=== PATIENT | female | born 1975 | race Hispanic/Latino ===

== ENCOUNTER 2022-07-30 14:23 | Observation (INO) | payer BC ==
[2022-07-30] MEDS ORDERED: Morphine 4 MG/ML VIAL ONE (15:11)
[2022-07-30] MEDS ORDERED: Ondansetron PF 4 MG/2 ML Vial ONE (15:11)
[2022-07-30 15:20] LABS: #Basophils 0.1 thou/uL (0.0-0.2); #Eosinphils 0.1 thou/uL (0.0-0.7); #Lymphocytes 1.4 thou/uL (1.20-3.40); #Monocytes 0.6 thou/uL (0.11-0.59); #Neutrophils 2.6 thou/uL (1.40-6.50); %Basophils 1.7 % (0.0-1.0); %Eosinophils 1.5 % (0.0-10.0); %Lymphocytes 29.8 % (21.0-51.0); %Monocytes 12.8 % (0.0-10.0); %Neutrophils 54.2 % (42.0-75.0); Hemoglobin 8.6 g/dL (12.0-16.0); Mean Corpuscular Hemoglobin 33.7 pg (27.0-31.0); Mean Platelet Volume 7.6 fL (7.4-10.4); Platelet Count 53 10x3/uL (130-400); Red Blood Cell (RBC) Count 2.54 mill/uL (4.20-5.40); White Blood Cell (WBC) Count 4.8 10x3/uL (4.8-10.8)
[2022-07-30 15:24] LABS: BHCG - Serum Negative (NEGATIVE); Pregs Control Background? CLEAR/WHITE (CLR/WHITE); Pregs Control Bar Appear? YES (CONTROL BAR)
[2022-07-30 15:31] LABS: ALT (SGPT) 26 U/L (8-55); AST (SGOT) 115 U/L (5-34); Albumin 1.9 g/dL (3.5-5.0); Alkaline Phosphatase 134 U/L (40-110); Anion Gap 11 mmol/L (10-20); BUN (Urea Nitrogen) 5 mg/dL (7.0-18.7); Bilirubin, Total 3.9 mg/dL (0.2-1.2); Calc. Creatinine Clearance 0 mL/min (70-130); Calcium 7.5 mg/dL (7.8-10.44); Carbon Dioxide 23 mmol/L (22-29); Chloride 106 mmol/L (98-107); Estimated GFR 109; Globulin 5.9 g/dL (2.4-3.5); Glucose 120 mg/dL (70-105); Lipase 95 U/L (8-78); Potassium 3.9 mmol/L (3.5-5.1); Protein, Total 7.8 g/dL (6.0-8.3); Sodium 136 mmol/L (136-145)
[2022-07-30 15:36] LABS: Anisocytosis SLIGHT = 6-15 cells (100X) (0-5/hpf); MDiff Complete? YES; Macrocytosis SLIGHT = 6-15 cells (100X) (0-5/hpf); Platelet Morphology Comment Appears Decreased; Polychromasia SLIGHT = 2-3 cells (100X) (0-2/hpf); Target Cells SLIGHT = 2-5 cells (100X) (0-1/hpf)
[2022-07-30] MEDS ORDERED: Senokot S 8.6-50 MG TAB PO PRN (17:32)
[2022-07-30] MEDS ORDERED: Furosemide 20 MG/2 ML VIAL SLOW IVP SCH (17:32)
[2022-07-30] MEDS ORDERED: Ondansetron PF 4 MG/2 ML Vial IVP PRN (18:45)
[2022-07-30] MEDS ORDERED: Ondansetron ODT 4 MG TAB SL PRN (18:45)
[2022-07-30 19:01] LABS: INR-International Normal Ratio 1.9; Prothrombin Time 22.7 sec (12.0-14.7)
[2022-07-30 19:02] LABS: PTT 47.9 sec (22.9-36.1)
[2022-07-30] MEDS: cefTRIAXone\\ROCEPHIN 1 GM in Sodium Chloride 0.9% 100 ML IVPB SCH (19:40)
[2022-07-31] MEDS ORDERED: Lorazepam 1 MG TAB PO SCH (06:00)
[2022-07-31 07:41] LABS: Anion Gap 12 mmol/L (10-20); BUN (Urea Nitrogen) 8 mg/dL (7.0-18.7); Calc. Creatinine Clearance 178 mL/min (70-130); Calcium 7.5 mg/dL (7.8-10.44); Carbon Dioxide 22 mmol/L (22-29); Chloride 104 mmol/L (98-107); Estimated GFR 110; Glucose 89 mg/dL (70-105); Potassium 3.8 mmol/L (3.5-5.1); Sodium 134 mmol/L (136-145)
[2022-07-31 07:52] LABS: #Basophils 0.1 thou/uL (0.0-0.2); #Lymphocytes 1.1 thou/uL (1.20-3.40); #Monocytes 0.5 thou/uL (0.11-0.59); #Neutrophils 2.7 thou/uL (1.40-6.50); %Basophils 2.2 % (0.0-1.0); %Lymphocytes 25.4 % (21.0-51.0); %Neutrophils 59.5 % (42.0-75.0); Hemoglobin 7.7 g/dL (12.0-16.0); Mean Corpuscular HGB CONC 30.2 g/dL (32.0-36.0); Mean Corpuscular Hemoglobin 32.3 pg (27.0-31.0); Platelet Count 45 10x3/uL (130-400); Red Blood Cell (RBC) Count 2.37 mill/uL (4.20-5.40); White Blood Cell (WBC) Count 4.5 10x3/uL (4.8-10.8)
[2022-07-31] MEDS ORDERED: Albumin 25% 25 GM/100 ML BOT IVPB SCH (09:00)
[2022-07-31] MEDS: traMADol HCl 50 MG TAB PO PRN (09:28)
[2022-07-31] MEDS ORDERED: Ondansetron ODT 4 MG TAB PO PRN ×2 (13:06→13:15)
[2022-07-31] MEDS ORDERED: Lorazepam 1 MG TAB PO PRN ×2 (13:06)
[2022-07-31] MEDS ORDERED: Lorazepam 2 MG/ML VIAL IM PRN ×2 (13:06→13:15)
[2022-07-31] MEDS ORDERED: Electrolyte Replacement Protocol 1 EACH FS PRN (13:15)
[2022-07-31] MEDS ORDERED: Thiamine HCl 200 MG/2 ML VIAL SLOW IVP SCH (13:15)
[2022-07-31] MEDS ORDERED: Electrolyte Replacement Protocol 1 EACH FS SCH (13:15)
[2022-07-31] MEDS ORDERED: Multivit, Therapeutic 1 TAB PO SCH (13:15)
[2022-07-31] MEDS ORDERED: Folic Acid 1 MG TAB PO SCH (13:15)
[2022-07-31] MEDS: Lorazepam 1 MG TAB PO SCH ×2 (13:59→19:21)
[2022-07-31] MEDS: Thiamine HCl 200 MG/2 ML VIAL SLOW IVP SCH (14:07)
[2022-07-31 14:22] LABS: #Basophils 0.1 thou/uL (0.0-0.2); #Monocytes 0.7 thou/uL (0.11-0.59); #Neutrophils 3.6 thou/uL (1.40-6.50); %Basophils 1.8 % (0.0-1.0); %Eosinophils 0.4 % (0.0-10.0); %Lymphocytes 18.6 % (21.0-51.0); %Monocytes 12.7 % (0.0-10.0); %Neutrophils 66.5 % (42.0-75.0); Mean Corpuscular HGB CONC 30.6 g/dL (32.0-36.0); Mean Corpuscular Hemoglobin 32.2 pg (27.0-31.0); Platelet Count 49 10x3/uL (130-400); Red Blood Cell (RBC) Count 2.47 mill/uL (4.20-5.40); White Blood Cell (WBC) Count 5.4 10x3/uL (4.8-10.8)
[2022-07-31 14:42] LABS: ALT (SGPT) 30 U/L (8-55); AST (SGOT) 156 U/L (5-34); Alkaline Phosphatase 152 U/L (40-110); Anion Gap 13 mmol/L (10-20); BUN (Urea Nitrogen) 8 mg/dL (7.0-18.7); Bilirubin, Direct 3.5 mg/dL (0.1-0.3); Bilirubin, Total 5.2 mg/dL (0.2-1.2); Calc. Creatinine Clearance 167 mL/min (70-130); Calcium 7.6 mg/dL (7.8-10.44); Carbon Dioxide 22 mmol/L (22-29); Chloride 104 mmol/L (98-107); Estimated GFR 109; Globulin 6.1 g/dL (2.4-3.5); Glucose 94 mg/dL (70-105); Magnesium 1.8 mg/dL (1.6-2.6); Phosphorus 2.5 mg/dL (2.3-4.7); Potassium 3.9 mmol/L (3.5-5.1); Protein, Total 8.1 g/dL (6.0-8.3); Sodium 135 mmol/L (136-145)
[2022-07-31] MEDS: cefTRIAXone\\ROCEPHIN 1 GM in Sodium Chloride 0.9% 100 ML IVPB SCH (17:34)
[2022-07-31 22:16] LABS: Syphilis Antibody Nonreactive (Nonreactive); Syphilis Antibody Index 0.15 S/CO (<1.00 Non-Reactive)
[2022-08-01] MEDS: Lorazepam 1 MG TAB PO SCH ×4 (00:58→18:55)
[2022-08-01] MEDS ORDERED: Magnesium 2 GM/50 ML(in water) 2 GM in Premix Bag 1 BAG IVPB SCH (01:30)
[2022-08-01 05:55] VITALS: BMI 41.5
[2022-08-01] MEDS ORDERED: Lorazepam 1 MG TAB PO SCH (06:00)
[2022-08-01 07:09] LABS: Anion Gap 11 mmol/L (10-20); BUN (Urea Nitrogen) 9 mg/dL (7.0-18.7); Calc. Creatinine Clearance 167 mL/min (70-130); Calcium 7.9 mg/dL (7.8-10.44); Carbon Dioxide 24 mmol/L (22-29); Chloride 100 mmol/L (98-107); Estimated GFR 108; Glucose 82 mg/dL (70-105); Iron 88 ug/dL (50-170); Iron Binding Capacity, Total 210 mcg/dL (265-497); Potassium 3.6 mmol/L (3.5-5.1); Sodium 131 mmol/L (136-145)
[2022-08-01 07:24] LABS: Ferritin 101.54 ng/mL (10-291); Hemoglobin A1c 3.7 % (4.0-6.0)
[2022-08-01] MEDS ORDERED: Sodium Bicarbonate 2.5 MEQ/5 ML VIAL ONE (07:45)
[2022-08-01] MEDS ORDERED: Lidocaine 2% PF 5 ML VIAL ONE (07:45)
[2022-08-01] MEDS ORDERED: Multivit, Therapeutic 1 TAB PO SCH (09:00)
[2022-08-01] MEDS ORDERED: Folic Acid 1 MG TAB PO SCH (09:00)
[2022-08-01] MEDS: Spironolactone 100 MG TAB PO SCH (10:21)
[2022-08-01] MEDS: Folic Acid 1 MG TAB PO SCH (10:21)
[2022-08-01] MEDS: Multivit, Therapeutic 1 TAB PO SCH (10:21)
[2022-08-01 11:16] LABS: BF Color Yellow; Body Fluid Source Ascites Body Fluid; Clarity Hazy (Clear); Tube # EDTA
[2022-08-01] MEDS ORDERED: Albumin 25% 25 GM/100 ML BOT IVPB SCH (11:45)
[2022-08-01 12:04] LABS: RBC Count-Automated (BF) 1608 /cu.mm; WBC/Nucleated-Auto (BF) 140 /cu.mm
[2022-08-01 12:30] LABS: BF Segmented Neutrophils 1 %; Cell Count Non Hematic 79 %; Lymphocytes 20 %
[2022-08-01] MEDS ORDERED: Lorazepam 1 MG TAB PO PRN ×2 (13:07→13:15)
[2022-08-01] MEDS: Thiamine HCl 200 MG/2 ML VIAL SLOW IVP SCH (13:46)
[2022-08-01] MEDS: traMADol HCl 50 MG TAB PO PRN (14:01)
[2022-08-01 15:51] LABS: HBCM Index 0.08 S/CO (0-0.79); HBSAg Index 0.38 S/CO (0-0.99); Hep A IgM AB Non-Reactive (NonReactive); Hep A IgM S/CO 0.31 S/CO (0-0.79); Hep B Surf Ag Non-Reactive S/CO (NonReactive); Hep C IgG Ab Non-Reactive (NonReactive); Hep C Index 0.27 S/CO (0-0.79); Hepatitis B Core IgM Abs Non-Reactive (NonReactive)
[2022-08-01 18:24] LABS: #Lymphocytes 0.8 thou/uL (1.20-3.40); #Monocytes 0.5 thou/uL (0.11-0.59); #Neutrophils 2.5 thou/uL (1.40-6.50); %Eosinophils 0.6 % (0.0-10.0); %Lymphocytes 20.4 % (21.0-51.0); %Monocytes 13.4 % (0.0-10.0); %Neutrophils 64.6 % (42.0-75.0); Hemoglobin 7.4 g/dL (12.0-16.0); Mean Corpuscular HGB CONC 30.5 g/dL (32.0-36.0); Mean Corpuscular Hemoglobin 32.5 pg (27.0-31.0); Mean Platelet Volume 8.6 fL (7.4-10.4); Platelet Count 40 10x3/uL (130-400); RBC Distribution Width 16.1 % (11.5-14.5); Red Blood Cell (RBC) Count 2.29 mill/uL (4.20-5.40); White Blood Cell (WBC) Count 3.9 10x3/uL (4.8-10.8)
[2022-08-01] MEDS: cefTRIAXone\\ROCEPHIN 1 GM in Sodium Chloride 0.9% 100 ML IVPB SCH (18:43)
[2022-08-02] MEDS: Lorazepam 1 MG TAB PO SCH ×2 (01:44→10:29)
[2022-08-02] MEDS ORDERED: Lorazepam 0.5 MG TAB PO SCH ×2 (06:00→13:15)
[2022-08-02 06:17] LABS: Anion Gap 8 mmol/L (10-20); BUN (Urea Nitrogen) 7 mg/dL (7.0-18.7); Calc. Creatinine Clearance 183 mL/min (70-130); Calcium 7.8 mg/dL (7.8-10.44); Carbon Dioxide 24 mmol/L (22-29); Chloride 101 mmol/L (98-107); Estimated GFR 110; Glucose 91 mg/dL (70-105); Potassium 3.3 mmol/L (3.5-5.1); Sodium 130 mmol/L (136-145)
[2022-08-02] MEDS ORDERED: Potassium Chloride 20 MEQ TAB PO SCH ×2 (08:30→10:30)
[2022-08-02] MEDS ORDERED: FLU VACC QS2022-23(6MOS UP)/PF 60 MCG/0.5 ML SYRINGE IM ONE (09:00)
[2022-08-02] MEDS: Multivit, Therapeutic 1 TAB PO SCH (10:24)
[2022-08-02] MEDS: Spironolactone 100 MG TAB PO SCH (10:25)
[2022-08-02] MEDS: Folic Acid 1 MG TAB PO SCH (10:25)
[2022-08-02 12:33] VITALS: BP 129/76; TEMP 97.9
[2022-08-02] MEDS ORDERED: Lorazepam 1 MG TAB PO PRN ×2 (13:07→13:15)
[2022-08-02] MEDS: Thiamine HCl 200 MG/2 ML VIAL SLOW IVP SCH (15:46)
[2022-08-03 02:12] LABS: Alpha-1-Antitrypsin 160 mg/dL (101-187)
[2022-08-03] MEDS ORDERED: Lorazepam 0.5 MG TAB PO PRN ×2 (06:00→13:07)
[2022-08-03] MEDS ORDERED: Thiamine 100 MG TAB PO SCH ×2 (09:00)
[2022-08-03 11:15] LABS: Smooth Muscle Total ABS 19 Units (0-19)
[2022-08-03 19:52] LABS: ANA Symphony (Qualitative) POSITIVE (Negative); ANA Symphony (Quantitative) 1.1 Ratio (< 0.7 Negative); CENP IgG Antibody 1.3 EliAU/mL (<7 Negative); RNP70 IgG Antibody 4.5 EliAU/mL (<7 Negative); SSA/Ro IgG Antibody 2.1 EliAU/mL (<7 Negative); SSB/La IgG Antibody 2.9 EliAU/mL (<7 Negative); Scleroderma-70 IgG Antibody 1.4 EliAU/mL (<7 Negative); Smith D IgG Antibody 4.2 EliAU/mL (<7 Negative); dsDNA IgG Antibody 2.4 IU/mL (<10 Negative)
== END 2022-08-02 14:35 | disposition home or self-care (01) ==
LOC: ERS 14:23 → SJJU 16:42 → INTOOBSV 16:42
PROVIDERS: ADMIT Internal Medicine; ATTEND Internal Medicine
PROC: 0W9G3ZX Drainage of Peritoneal Cavity, Percutaneous Approach, Diagnostic (ICD-10-PCS; principal; 2022-08-01)
DX: K70.31 Alcoholic cirrhosis of liver with ascites (principal); D61.818 Other pancytopenia; F10.139 Alcohol abuse with withdrawal, unspecified; E88.09 Other disorders of plasma-protein metabolism, not elsewhere classified; M06.9 Rheumatoid arthritis, unspecified; K80.20 Calculus of gallbladder without cholecystitis without obstruction; K76.6 Portal hypertension; Z79.899 Other long term (current) drug therapy
CPT/HCPCS: 36415; 36416; 49083; 80048; 80053; 80074; 82042; 82103; 82105; 82140; 82248; 82728; 83036; 83540; 83550; 83690; 83735; 84100; 84157; 84703; 85025; 85060; 85610; 85730; 86015; 86038; 86225; 86235; 86780; 87070; 87205; 89051; 96374; 96375; J0696; J1940; J2001; J2270; J2405; J3411; J3475; J3490; P9047; Q0162

== ENCOUNTER 2022-08-13 12:51 | Emergency (ER) | payer BC ==
[2022-08-13 14:01] LABS: #Basophils 0.1 thou/uL (0.0-0.2); #Eosinphils 0.1 thou/uL (0.0-0.7); #Lymphocytes 1.5 thou/uL (1.20-3.40); #Monocytes 0.6 thou/uL (0.11-0.59); #Neutrophils 3.2 thou/uL (1.40-6.50); %Basophils 2.1 % (0.0-1.0); %Eosinophils 2.5 % (0.0-10.0); %Lymphocytes 27.2 % (21.0-51.0); %Monocytes 10.5 % (0.0-10.0); %Neutrophils 57.7 % (42.0-75.0); Mean Corpuscular HGB CONC 31.1 g/dL (32.0-36.0); Mean Corpuscular Hemoglobin 31.7 pg (27.0-31.0); Mean Platelet Volume 6.7 fL (7.4-10.4); Platelet Count 158 10x3/uL (130-400); RBC Distribution Width 15.8 % (11.5-14.5); Red Blood Cell (RBC) Count 2.21 mill/uL (4.20-5.40); White Blood Cell (WBC) Count 5.6 10x3/uL (4.8-10.8)
== END 2022-08-13 17:35 | disposition home or self-care (01) ==
LOC: ERS 12:51
DX: D50.0 Iron deficiency anemia secondary to blood loss (chronic) (principal); K74.60 Unspecified cirrhosis of liver
CPT/HCPCS: 36415; 36430; 85025; 86850; 86900; 86901; 99284; P9016

== ENCOUNTER 2022-08-17 11:19 | Emergency (ER) | payer BC ==
[2022-08-17 12:41] LABS: #Basophils 0.1 thou/uL (0.0-0.2); #Eosinphils 0.1 thou/uL (0.0-0.7); #Lymphocytes 1.5 thou/uL (1.20-3.40); #Monocytes 0.5 thou/uL (0.11-0.59); #Neutrophils 3.6 thou/uL (1.40-6.50); %Basophils 1.8 % (0.0-1.0); %Eosinophils 1.5 % (0.0-10.0); %Lymphocytes 25.4 % (21.0-51.0); %Monocytes 8.3 % (0.0-10.0); %Neutrophils 62.9 % (42.0-75.0); Hemoglobin 8.5 g/dL (12.0-16.0); Mean Corpuscular HGB CONC 30.9 g/dL (32.0-36.0); Mean Corpuscular Hemoglobin 31.1 pg (27.0-31.0); Mean Platelet Volume 7.1 fL (7.4-10.4); Platelet Count 122 10x3/uL (130-400); RBC Distribution Width 16.9 % (11.5-14.5); Red Blood Cell (RBC) Count 2.74 mill/uL (4.20-5.40); White Blood Cell (WBC) Count 5.8 10x3/uL (4.8-10.8)
[2022-08-17 13:01] LABS: ALT (SGPT) 26 U/L (8-55); AST (SGOT) 126 U/L (5-34); Albumin 1.9 g/dL (3.5-5.0); Alkaline Phosphatase 150 U/L (40-110); Anion Gap 13 mmol/L (10-20); BUN (Urea Nitrogen) 6 mg/dL (7.0-18.7); Bilirubin, Total 4.1 mg/dL (0.2-1.2); Calc. Creatinine Clearance 0 mL/min (70-130); Carbon Dioxide 19 mmol/L (22-29); Chloride 107 mmol/L (98-107); Estimated GFR 109; Globulin 6.6 g/dL (2.4-3.5); Glucose 115 mg/dL (70-105); Potassium 4.5 mmol/L (3.5-5.1); Protein, Total 8.5 g/dL (6.0-8.3); Sodium 134 mmol/L (136-145)
[2022-08-17 16:11] LABS: Bacteria/HPF None Seen HPF (None Seen); Bilirubin 1+ (Negative); Blood, Urine Trace (Negative); Clarity Clear (Clear); Glucose, Urine (Dipstick) Normal (Negative); Ketone, Urine Negative (Negative); Leukocyte Negative Leu/uL (Negative); Nitrite Negative (Negative); Protein, Urine (Dipstick) 20 mg/dL (Neg-Trace); RBC/HPF 0-3 HPF (0-3); Specific Gravity, Urine 1.024 (1.002-1.036); Squamous Epithelial 0-3 HPF (0-3); WBC/HPF 0-3 HPF (0-3); pH, Urine 5.5 (5.0-9.0)
[2022-08-17] MEDS ORDERED: Ketorolac Tromethamine 30 MG/ML VIAL ONE (17:07)
== END 2022-08-17 17:23 | disposition home or self-care (01) ==
LOC: ERS 11:19
DX: M54.50 Low back pain, unspecified (principal); R55 Syncope and collapse; D64.9 Anemia, unspecified; K74.60 Unspecified cirrhosis of liver; I10 Essential (primary) hypertension; W19.XXXA Unspecified fall, initial encounter; Z79.899 Other long term (current) drug therapy
CPT/HCPCS: 36415; 70450; 71045; 72131; 80053; 81003; 81015; 82248; 84484; 85025; 93005; 96372; J1885

== ENCOUNTER 2022-08-20 07:58 | Inpatient (IN) | payer BC ==
[2022-08-20 09:00] LABS: #Basophils 0.1 thou/uL (0.0-0.2); #Eosinphils 0.1 thou/uL (0.0-0.7); #Lymphocytes 1.3 thou/uL (1.20-3.40); #Monocytes 0.7 thou/uL (0.11-0.59); #Neutrophils 6.3 thou/uL (1.40-6.50); %Basophils 0.8 % (0.0-1.0); %Eosinophils 1.5 % (0.0-10.0); %Lymphocytes 14.7 % (21.0-51.0); %Monocytes 7.9 % (0.0-10.0); Hemoglobin 7.4 g/dL (12.0-16.0); Mean Corpuscular Hemoglobin 32.7 pg (27.0-31.0); Mean Platelet Volume 8.2 fL (7.4-10.4); Platelet Count 83 10x3/uL (130-400); RBC Distribution Width 18.4 % (11.5-14.5); Red Blood Cell (RBC) Count 2.26 mill/uL (4.20-5.40); White Blood Cell (WBC) Count 8.5 10x3/uL (4.8-10.8)
[2022-08-20 09:09] LABS: Prothrombin Time 32.8 sec (12.0-14.7)
[2022-08-20 09:10] LABS: PTT 45.6 sec (22.9-36.1)
[2022-08-20 09:18] LABS: ALT (SGPT) 16 U/L (8-55); AST (SGOT) 56 U/L (5-34); Albumin 1.6 g/dL (3.5-5.0); Alkaline Phosphatase 78 U/L (40-110); Anion Gap 14 mmol/L (10-20); BUN (Urea Nitrogen) 15 mg/dL (7.0-18.7); Bilirubin, Total 4.9 mg/dL (0.2-1.2); Calc. Creatinine Clearance 0 mL/min (70-130); Calcium 7.8 mg/dL (7.8-10.44); Carbon Dioxide 20 mmol/L (22-29); Chloride 107 mmol/L (98-107); Estimated GFR 36; Globulin 3.8 g/dL (2.4-3.5); Glucose 123 mg/dL (70-105); Lipase 87 U/L (8-78); Magnesium 1.8 mg/dL (1.6-2.6); Potassium 4.5 mmol/L (3.5-5.1); Protein, Total 5.4 g/dL (6.0-8.3); Sodium 136 mmol/L (136-145)
[2022-08-20 09:24] LABS: Hypochromia SLIGHT = 6-15 cells (100X) (0-5/hpf); MDiff Complete? YES; Macrocytosis SLIGHT = 6-15 cells (100X) (0-5/hpf); Platelet Morphology Comment Appears Decreased; Polychromasia MODERATE = 3-4 cells (100X) (0-2/hpf); Target Cells SLIGHT = 2-5 cells (100X) (0-1/hpf); Tear Drops SLIGHT = 2-5 cells (100X) (0-1/hpf)
[2022-08-20] MEDS ORDERED: Lidocaine 1% w/Epinephrine 1:100K 20 ML VIAL IJ SCH (10:00)
[2022-08-20] MEDS ORDERED: Albumin 25% 25 GM/100 ML BOT IVPB SCH (10:30)
[2022-08-20] MEDS ORDERED: Metoclopramide HCl 10 MG/2 ML VIAL IVP PRN (11:56)
[2022-08-20] MEDS ORDERED: Furosemide 40 MG/4 ML VIAL SLOW IVP SCH (12:00)
[2022-08-20] MEDS ORDERED: Sodium Chloride 0.9% 1,000 ML IV SCH (13:15)
[2022-08-20] MEDS: cefTRIAXone\\ROCEPHIN 2 GM in Sodium Chloride 0.9% 100 ML IVPB SCH (13:51)
[2022-08-20] MEDS: Midodrine HCl 5 MG TAB PO SCH ×2 (14:28→21:49)
[2022-08-20] MEDS: Albumin 25% 25 GM/100 ML BOT IVPB SCH ×2 (17:49→23:17)
[2022-08-20 17:53] LABS: Bacteria/HPF 1+ HPF (None Seen); Bilirubin 2+ (Negative); Blood, Urine Negative (Negative); CAUTI Indications for Culture Alt mental st,lethar; Clarity Cloudy (Clear); Glucose, Urine (Dipstick) Normal (Negative); Ketone, Urine Negative (Negative); Leukocyte 75 Leu/uL (Negative); Nitrite Negative (Negative); Protein, Urine (Dipstick) 30 mg/dL (Neg-Trace); Specific Gravity, Urine 1.028 (1.002-1.036)
[2022-08-20 17:54] LABS: Urine Culture Reflex Yes Yes
[2022-08-20 18:09] LABS: Creatinine, Urine 277.27 mg/dL (47-110)
[2022-08-20 20:26] LABS: Amphetamine Not Detected (NotDetected); Barbiturates Screen Not Detected (NotDetected); Benzodiazepine Screen Not Detected (NotDetected); Cocaine Metabolite Screen Not Detected (NotDetected); Methadone Not Detected (NotDetected); Methamphetamine Not Detected (NotDetected); Opiate Screen Not Detected (NotDetected); Oxycodone Screen Not Detected (NotDetected); Phencyclidine (PCP) Not Detected (NotDetected); THC/Cannabinoid Screen Not Detected (NotDetected); Tricyclic Screen Not Detected (NotDetected)
[2022-08-20 20:32] LABS: Acetaminophen Less than 10.0 mcg/mL (10.0-30.0); Alcohol Less than 10 mg/dL (Less than 10); Salicylate Less than 8.0 mg/dL (15.0-30.0)
[2022-08-20] MEDS: Sodium Bicarbonate Tab 325 MG TAB PO SCH (21:49)
[2022-08-21] MEDS: Albumin 25% 25 GM/100 ML BOT IVPB SCH ×3 (04:44→17:30)
[2022-08-21 07:15] LABS: ALT (SGPT) 12 U/L (8-55); AST (SGOT) 44 U/L (5-34); Albumin 2.5 g/dL (3.5-5.0); Alkaline Phosphatase 57 U/L (40-110); Anion Gap 11 mmol/L (10-20); BUN (Urea Nitrogen) 19 mg/dL (7.0-18.7); Bilirubin, Total 3.2 mg/dL (0.2-1.2); Calc. Creatinine Clearance 68 mL/min (70-130); Calcium 8.1 mg/dL (7.8-10.44); Carbon Dioxide 22 mmol/L (22-29); Chloride 109 mmol/L (98-107); Estimated GFR 37; Globulin 2.8 g/dL (2.4-3.5); Glucose 111 mg/dL (70-105); INR-International Normal Ratio 3.5; Protein, Total 5.3 g/dL (6.0-8.3); Prothrombin Time 37.1 sec (12.0-14.7); Sodium 138 mmol/L (136-145)
[2022-08-21] MEDS: Thiamine 100 MG TAB PO SCH (08:18)
[2022-08-21] MEDS: Cyanocobalamin (Vitamin B-12) 1,000 MCG TAB PO SCH (08:18)
[2022-08-21] MEDS: Folic Acid 1 MG TAB PO SCH (08:18)
[2022-08-21] MEDS: Midodrine HCl 5 MG TAB PO SCH ×3 (08:18→20:30)
[2022-08-21] MEDS: Sodium Bicarbonate Tab 325 MG TAB PO SCH ×2 (08:18→20:29)
[2022-08-21] MEDS ORDERED: Furosemide 40 MG/4 ML VIAL SLOW IVP SCH (09:00)
[2022-08-21] MEDS ORDERED: Epoetin (ESRD) 10,000 UNITS/ML VIAL SC SCH (09:00)
[2022-08-21 09:37] LABS: #Eosinphils 0.1 thou/uL (0.0-0.7); #Lymphocytes 1.4 thou/uL (1.20-3.40); #Monocytes 0.6 thou/uL (0.11-0.59); #Neutrophils 4.2 thou/uL (1.40-6.50); %Basophils 0.6 % (0.0-1.0); %Eosinophils 1.1 % (0.0-10.0); %Lymphocytes 22.4 % (21.0-51.0); %Monocytes 9.2 % (0.0-10.0); %Neutrophils 66.7 % (42.0-75.0); Hemoglobin 3.4 g/dL (12.0-16.0); Mean Corpuscular HGB CONC 31.2 g/dL (32.0-36.0); Mean Corpuscular Hemoglobin 33.9 pg (27.0-31.0); Mean Platelet Volume 7.9 fL (7.4-10.4); Platelet Count 76 10x3/uL (130-400); RBC Distribution Width 20.1 % (11.5-14.5); Red Blood Cell (RBC) Count 1.02 mill/uL (4.20-5.40); White Blood Cell (WBC) Count 6.3 10x3/uL (4.8-10.8)
[2022-08-21 10:06] LABS: Anisocytosis MODERATE=16-30 cells (100X) (0-5/hpf); Hypochromia SLIGHT = 6-15 cells (100X) (0-5/hpf); MDiff Complete? YES; Macrocytosis MODERATE=16-30 cells (100X) (0-5/hpf); Platelet Morphology Comment Appears Decreased; Polychromasia MODERATE = 3-4 cells (100X) (0-2/hpf); Target Cells MODERATE= 6-15 cells (100X) (0-1/hpf); Tear Drops SLIGHT = 2-5 cells (100X) (0-1/hpf)
[2022-08-21] MEDS ORDERED: Albumin 25% 25 GM/100 ML BOT IVPB SCH (12:00)
[2022-08-21] MEDS: cefTRIAXone\\ROCEPHIN 2 GM in Sodium Chloride 0.9% 100 ML IVPB SCH (12:58)
[2022-08-21] MEDS ORDERED: Octreotide Acetate 1,250 MCG in Sodium Chloride 0.9% 250 ML 250 ML IVPB SCH (14:45)
[2022-08-21] MEDS ORDERED: Phytonadione 10 MG in Sodium Chloride 0.9% 50 ML IVPB SCH (14:45)
[2022-08-21 18:43] LABS: Hemoglobin 6.8 g/dL (12.0-16.0); Mean Corpuscular HGB CONC 33.1 g/dL (32.0-36.0); Mean Corpuscular Hemoglobin 31.7 pg (27.0-31.0); Mean Corpuscular Volume 95.7 fl (78.0-98.0); Mean Platelet Volume 8.4 fL (7.4-10.4); Platelet Count 75 10x3/uL (130-400); RBC Distribution Width 20.5 % (11.5-14.5); Red Blood Cell (RBC) Count 2.14 mill/uL (4.20-5.40); White Blood Cell (WBC) Count 7.8 10x3/uL (4.8-10.8)
[2022-08-22] MEDS: Albumin 25% 25 GM/100 ML BOT IVPB SCH ×4 (01:47→14:37)
[2022-08-22] MEDS ORDERED: Melatonin 3 MG TAB PO PRN (01:47)
[2022-08-22 06:55] LABS: INR-International Normal Ratio 2.5; Prothrombin Time 28.3 sec (12.0-14.7)
[2022-08-22 06:56] LABS: #Basophils 0.1 thou/uL (0.0-0.2); #Eosinphils 0.2 thou/uL (0.0-0.7); #Lymphocytes 1.1 thou/uL (1.20-3.40); #Monocytes 0.8 thou/uL (0.11-0.59); #Neutrophils 6.2 thou/uL (1.40-6.50); %Basophils 0.9 % (0.0-1.0); %Eosinophils 2.4 % (0.0-10.0); %Lymphocytes 12.7 % (21.0-51.0); %Monocytes 9.7 % (0.0-10.0); %Neutrophils 74.3 % (42.0-75.0); Hemoglobin 7.2 g/dL (12.0-16.0); Mean Corpuscular HGB CONC 31.6 g/dL (32.0-36.0); Mean Corpuscular Hemoglobin 30.7 pg (27.0-31.0); Mean Corpuscular Volume 97.2 fl (78.0-98.0); Mean Platelet Volume 7.8 fL (7.4-10.4); Platelet Count 105 10x3/uL (130-400); RBC Distribution Width 20.2 % (11.5-14.5); Red Blood Cell (RBC) Count 2.35 mill/uL (4.20-5.40); White Blood Cell (WBC) Count 8.4 10x3/uL (4.8-10.8)
[2022-08-22 07:06] LABS: Anion Gap 10 mmol/L (10-20); BUN (Urea Nitrogen) 15 mg/dL (7.0-18.7); Calc. Creatinine Clearance 130 mL/min (70-130); Calcium 8.6 mg/dL (7.8-10.44); Carbon Dioxide 22 mmol/L (22-29); Chloride 107 mmol/L (98-107); Estimated GFR 78; Glucose 114 mg/dL (70-105); Potassium 3.7 mmol/L (3.5-5.1); Sodium 135 mmol/L (136-145)
[2022-08-22 07:12] LABS: Iron 37 ug/dL (50-170); Iron Binding Capacity, Total 123 mcg/dL (265-497)
[2022-08-22] MEDS: Thiamine 100 MG TAB PO SCH (08:13)
[2022-08-22] MEDS: Folic Acid 1 MG TAB PO SCH (08:13)
[2022-08-22] MEDS: Midodrine HCl 5 MG TAB PO SCH ×3 (08:14→21:30)
[2022-08-22] MEDS: Cyanocobalamin (Vitamin B-12) 1,000 MCG TAB PO SCH (08:14)
[2022-08-22] MEDS: Sodium Bicarbonate Tab 325 MG TAB PO SCH ×2 (08:14→21:30)
[2022-08-22] MEDS: Acetaminophen 325 MG TAB PO PRN (12:28)
[2022-08-22] MEDS: cefTRIAXone\\ROCEPHIN 2 GM in Sodium Chloride 0.9% 100 ML IVPB SCH (12:28)
[2022-08-22] MEDS ORDERED: Torsemide 10 MG TAB PO SCH (13:00)
[2022-08-22] MEDS ORDERED: Spironolactone 25 MG TAB PO SCH (13:00)
[2022-08-22] MEDS: Octreotide Acetate 1,250 MCG in Sodium Chloride 0.9% 250 ML 250 ML IVPB SCH (16:53)
[2022-08-23 07:36] LABS: INR-International Normal Ratio 2.6; Prothrombin Time 28.8 sec (12.0-14.7)
[2022-08-23 07:37] LABS: #Basophils 0.1 thou/uL (0.0-0.2); #Eosinphils 0.2 thou/uL (0.0-0.7); #Lymphocytes 1.3 thou/uL (1.20-3.40); #Neutrophils 5.4 thou/uL (1.40-6.50); %Eosinophils 2.4 % (0.0-10.0); %Lymphocytes 16.6 % (21.0-51.0); %Monocytes 12.3 % (0.0-10.0); %Neutrophils 67.7 % (42.0-75.0); Hemoglobin 7.3 g/dL (12.0-16.0); Mean Corpuscular HGB CONC 31.9 g/dL (32.0-36.0); Mean Corpuscular Hemoglobin 31.4 pg (27.0-31.0); Mean Corpuscular Volume 98.5 fl (78.0-98.0); Mean Platelet Volume 7.6 fL (7.4-10.4); Platelet Count 101 10x3/uL (130-400); RBC Distribution Width 19.8 % (11.5-14.5); Red Blood Cell (RBC) Count 2.31 mill/uL (4.20-5.40)
[2022-08-23 07:50] LABS: ALT (SGPT) 11 U/L (8-55); AST (SGOT) 37 U/L (5-34); Alkaline Phosphatase 62 U/L (40-110); Anion Gap 11 mmol/L (10-20); BUN (Urea Nitrogen) 12 mg/dL (7.0-18.7); Bilirubin, Total 6.8 mg/dL (0.2-1.2); Calc. Creatinine Clearance 156 mL/min (70-130); Calcium 8.4 mg/dL (7.8-10.44); Carbon Dioxide 23 mmol/L (22-29); Chloride 106 mmol/L (98-107); Estimated GFR 98; Globulin 2.9 g/dL (2.4-3.5); Glucose 106 mg/dL (70-105); Potassium 3.4 mmol/L (3.5-5.1); Protein, Total 5.9 g/dL (6.0-8.3); Sodium 137 mmol/L (136-145)
[2022-08-23] MEDS: Midodrine HCl 5 MG TAB PO SCH ×3 (08:45→22:22)
[2022-08-23] MEDS: Folic Acid 1 MG TAB PO SCH (08:45)
[2022-08-23] MEDS: Cyanocobalamin (Vitamin B-12) 1,000 MCG TAB PO SCH (08:45)
[2022-08-23] MEDS: Thiamine 100 MG TAB PO SCH (08:45)
[2022-08-23] MEDS: Sodium Bicarbonate Tab 325 MG TAB PO SCH ×2 (08:45→22:23)
[2022-08-23] MEDS: Acetaminophen 325 MG TAB PO PRN (10:41)
[2022-08-23] MEDS ORDERED: Torsemide 10 MG TAB PO SCH (12:15)
[2022-08-23] MEDS ORDERED: Spironolactone 100 MG TAB PO SCH (12:15)
[2022-08-23] MEDS: cefTRIAXone\\ROCEPHIN 2 GM in Sodium Chloride 0.9% 100 ML IVPB SCH (13:07)
[2022-08-23] MEDS: Albumin 25% 25 GM/100 ML BOT IVPB SCH (17:33)
[2022-08-23] MEDS: Octreotide Acetate 1,250 MCG in Sodium Chloride 0.9% 250 ML 250 ML IVPB SCH (18:31)
[2022-08-23] MEDS: Spironolactone 100 MG TAB PO SCH (22:23)
[2022-08-24] MEDS: Albumin 25% 25 GM/100 ML BOT IVPB SCH ×4 (00:05→17:48)
[2022-08-24 06:38] LABS: Hemoglobin 7.3 g/dL (12.0-16.0)
[2022-08-24 07:03] LABS: ALT (SGPT) 9 U/L (8-55); AST (SGOT) 34 U/L (5-34); Albumin 2.8 g/dL (3.5-5.0); Alkaline Phosphatase 57 U/L (40-110); Anion Gap 10 mmol/L (10-20); BUN (Urea Nitrogen) 9 mg/dL (7.0-18.7); Bilirubin, Total 5.1 mg/dL (0.2-1.2); Calc. Creatinine Clearance 168 mL/min (70-130); Calcium 8.2 mg/dL (7.8-10.44); Carbon Dioxide 26 mmol/L (22-29); Chloride 107 mmol/L (98-107); Estimated GFR 107; Globulin 2.7 g/dL (2.4-3.5); Glucose 115 mg/dL (70-105); Potassium 3.1 mmol/L (3.5-5.1); Protein, Total 5.5 g/dL (6.0-8.3); Sodium 140 mmol/L (136-145)
[2022-08-24] MEDS ORDERED: Electrolyte Replacement Protocol 1 EACH FS SCH (07:45)
[2022-08-24] MEDS ORDERED: Potassium Chloride 20 MEQ TAB PO SCH (08:00)
[2022-08-24 08:23] LABS: Magnesium 1.3 mg/dL (1.6-2.6)
[2022-08-24] MEDS: Sodium Bicarbonate Tab 325 MG TAB PO SCH (08:41)
[2022-08-24] MEDS: Midodrine HCl 5 MG TAB PO SCH ×3 (08:41→21:52)
[2022-08-24] MEDS: Spironolactone 100 MG TAB PO SCH ×2 (08:41→21:52)
[2022-08-24] MEDS: Folic Acid 1 MG TAB PO SCH (08:41)
[2022-08-24] MEDS: Cyanocobalamin (Vitamin B-12) 1,000 MCG TAB PO SCH (08:41)
[2022-08-24] MEDS: Torsemide 10 MG TAB PO SCH (08:42)
[2022-08-24] MEDS: Thiamine 100 MG TAB PO SCH (08:42)
[2022-08-24] MEDS ORDERED: Magnesium Sulfate In Water 4 GM in Premix Bag 1 BAG IVPB SCH (09:00)
[2022-08-24 11:38] VITALS: BMI 43.0
[2022-08-24] MEDS: cefTRIAXone\\ROCEPHIN 2 GM in Sodium Chloride 0.9% 100 ML IVPB SCH (12:15)
[2022-08-24] MEDS ORDERED: Furosemide 40 MG/4 ML VIAL SLOW IVP SCH (12:15)
[2022-08-24] MEDS: Rifaximin 550 MG TAB PO SCH (21:52)
[2022-08-25] MEDS: Albumin 25% 25 GM/100 ML BOT IVPB SCH ×5 (00:15→23:57)
[2022-08-25 08:03] LABS: ALT (SGPT) 11 U/L (8-55); AST (SGOT) 36 U/L (5-34); Albumin 3.2 g/dL (3.5-5.0); Alkaline Phosphatase 55 U/L (40-110); Anion Gap 10 mmol/L (10-20); BUN (Urea Nitrogen) 11 mg/dL (7.0-18.7); Bilirubin, Total 4.6 mg/dL (0.2-1.2); Calc. Creatinine Clearance 172 mL/min (70-130); Calcium 8.2 mg/dL (7.8-10.44); Carbon Dioxide 28 mmol/L (22-29); Chloride 103 mmol/L (98-107); Estimated GFR 108; Globulin 2.5 g/dL (2.4-3.5); Glucose 120 mg/dL (70-105); Potassium 3.1 mmol/L (3.5-5.1); Protein, Total 5.7 g/dL (6.0-8.3); Sodium 138 mmol/L (136-145)
[2022-08-25] MEDS ORDERED: Potassium Chloride 20 MEQ TAB PO SCH (08:30)
[2022-08-25] MEDS: Thiamine 100 MG TAB PO SCH (09:12)
[2022-08-25] MEDS: Midodrine HCl 5 MG TAB PO SCH ×3 (09:12→20:41)
[2022-08-25] MEDS: Torsemide 10 MG TAB PO SCH (09:12)
[2022-08-25] MEDS: Folic Acid 1 MG TAB PO SCH (09:12)
[2022-08-25] MEDS: Rifaximin 550 MG TAB PO SCH ×2 (09:12→20:41)
[2022-08-25] MEDS: Cyanocobalamin (Vitamin B-12) 1,000 MCG TAB PO SCH (09:13)
[2022-08-25] MEDS: Spironolactone 100 MG TAB PO SCH ×2 (09:13→20:41)
[2022-08-25] MEDS: cefTRIAXone\\ROCEPHIN 2 GM in Sodium Chloride 0.9% 100 ML IVPB SCH (14:00)
[2022-08-25] MEDS ORDERED: Torsemide 10 MG TAB PO SCH (16:00)
[2022-08-25] MEDS: Potassium Chloride 20 MEQ TAB PO SCH (16:45)
[2022-08-25] MEDS ORDERED: Phytonadione 5 MG TAB PO SCH (16:50)
[2022-08-26] MEDS: Albumin 25% 25 GM/100 ML BOT IVPB SCH ×3 (05:58→20:18)
[2022-08-26 07:17] LABS: INR-International Normal Ratio 2.8; Prothrombin Time 30.7 sec (12.0-14.7)
[2022-08-26 07:18] LABS: PTT 52.8 sec (22.9-36.1)
[2022-08-26 07:19] LABS: Hemoglobin 6.8 g/dL (12.0-16.0); Mean Corpuscular HGB CONC 30.5 g/dL (32.0-36.0); Mean Platelet Volume 7.2 fL (7.4-10.4); Platelet Count 102 10x3/uL (130-400); RBC Distribution Width 18.9 % (11.5-14.5); White Blood Cell (WBC) Count 4.3 10x3/uL (4.8-10.8)
[2022-08-26 07:26] LABS: ALT (SGPT) 10 U/L (8-55); AST (SGOT) 40 U/L (5-34); Albumin 3.4 g/dL (3.5-5.0); Alkaline Phosphatase 49 U/L (40-110); Anion Gap 11 mmol/L (10-20); BUN (Urea Nitrogen) 10 mg/dL (7.0-18.7); Bilirubin, Total 5.2 mg/dL (0.2-1.2); Calc. Creatinine Clearance 173 mL/min (70-130); Calcium 8.7 mg/dL (7.8-10.44); Carbon Dioxide 28 mmol/L (22-29); Chloride 102 mmol/L (98-107); Estimated GFR 109; Globulin 2.4 g/dL (2.4-3.5); Glucose 98 mg/dL (70-105); Magnesium 1.3 mg/dL (1.6-2.6); Potassium 3.4 mmol/L (3.5-5.1); Protein, Total 5.8 g/dL (6.0-8.3); Sodium 138 mmol/L (136-145)
[2022-08-26] MEDS ORDERED: PHOS-NAK 1 PKT PACK PO SCH (08:00)
[2022-08-26] MEDS ORDERED: Magnesium Sulfate In Water 4 GM in Premix Bag 1 BAG IVPB SCH (08:00)
[2022-08-26] MEDS ORDERED: Magnesium Sulfate 4 GM in Sodium Chloride 0.9% 250 ML 250 ML IVPB SCH (08:30)
[2022-08-26] MEDS ORDERED: Potassium Phosphate 30 MMOL in Sodium Chloride 0.9% 250 ML 250 ML IVPB SCH (09:30)
[2022-08-26] MEDS: Potassium Chloride 20 MEQ TAB PO SCH ×2 (09:38→18:28)
[2022-08-26] MEDS: Torsemide 20 MG TAB PO SCH (09:39)
[2022-08-26] MEDS: Spironolactone 100 MG TAB PO SCH ×2 (09:39→20:19)
[2022-08-26] MEDS: Rifaximin 550 MG TAB PO SCH ×2 (09:39→20:19)
[2022-08-26] MEDS: Thiamine 100 MG TAB PO SCH (09:39)
[2022-08-26] MEDS: Cyanocobalamin (Vitamin B-12) 1,000 MCG TAB PO SCH (09:39)
[2022-08-26] MEDS: Folic Acid 1 MG TAB PO SCH (09:39)
[2022-08-26] MEDS: Midodrine HCl 5 MG TAB PO SCH ×3 (09:39→20:19)
[2022-08-26] MEDS: Acetaminophen 325 MG TAB PO PRN (10:36)
[2022-08-26] MEDS: Magnesium Sulfate In Water 4 GM in Premix Bag 1 BAG IVPB SCH ×2 (10:36→18:12)
[2022-08-26] MEDS ORDERED: Potassium Chloride 20 MEQ TAB PO SCH (12:00)
[2022-08-26] MEDS: cefTRIAXone\\ROCEPHIN 2 GM in Sodium Chloride 0.9% 100 ML IVPB SCH (15:18)
[2022-08-27 00:06] LABS: Hemoglobin 7.6 g/dL (12.0-16.0)
[2022-08-27 06:33] LABS: ALT (SGPT) 12 U/L (8-55); AST (SGOT) 42 U/L (5-34); Albumin 3.6 g/dL (3.5-5.0); Alkaline Phosphatase 54 U/L (40-110); Anion Gap 13 mmol/L (10-20); BUN (Urea Nitrogen) 9 mg/dL (7.0-18.7); Bilirubin, Total 5.5 mg/dL (0.2-1.2); Calc. Creatinine Clearance 181 mL/min (70-130); Calcium 8.9 mg/dL (7.8-10.44); Carbon Dioxide 27 mmol/L (22-29); Chloride 103 mmol/L (98-107); Estimated GFR 111; Globulin 2.5 g/dL (2.4-3.5); Glucose 96 mg/dL (70-105); Protein, Total 6.1 g/dL (6.0-8.3); Sodium 139 mmol/L (136-145)
[2022-08-27 06:34] LABS: Phosphorus 2.9 mg/dL (2.3-4.7)
[2022-08-27] MEDS ORDERED: Magnesium 2 GM/50 ML(in water) 2 GM in Premix Bag 1 BAG IVPB SCH (08:00)
[2022-08-27 08:16] LABS: Eosinophils 4 % (0-10); Hemoglobin 7.9 g/dL (12.0-16.0); Hypochromia SLIGHT = 6-15 cells (100X) (0-5/hpf); Lymphocytes 30 % (21-51); MDiff Complete? YES; Mean Corpuscular HGB CONC 31.7 g/dL (32.0-36.0); Mean Corpuscular Hemoglobin 31.7 pg (27.0-31.0); Mean Platelet Volume 7.9 fL (7.4-10.4); Monocytes 16 % (0-10); Neutrophil 50 % (42-75); Platelet Count 100 10x3/uL (130-400); Platelet Morphology Comment Appears Adequate; Polychromasia SLIGHT = 2-3 cells (100X) (0-2/hpf); RBC Distribution Width 18.6 % (11.5-14.5); Target Cells SLIGHT = 2-5 cells (100X) (0-1/hpf); Vacuoles SLIGHT; White Blood Cell (WBC) Count 4.8 10x3/uL (4.8-10.8)
[2022-08-27] MEDS: Rifaximin 550 MG TAB PO SCH (08:46)
[2022-08-27] MEDS: Thiamine 100 MG TAB PO SCH (08:46)
[2022-08-27] MEDS: Cyanocobalamin (Vitamin B-12) 1,000 MCG TAB PO SCH (08:46)
[2022-08-27] MEDS: Midodrine HCl 5 MG TAB PO SCH ×2 (08:46→17:23)
[2022-08-27] MEDS: Folic Acid 1 MG TAB PO SCH (08:46)
[2022-08-27] MEDS: Potassium Chloride 20 MEQ TAB PO SCH ×2 (08:46→17:17)
[2022-08-27 08:57] VITALS: TEMP 98.8
[2022-08-27] MEDS: Albumin 25% 25 GM/100 ML BOT IVPB SCH (10:03)
[2022-08-27] MEDS: Torsemide 20 MG TAB PO SCH (11:14)
[2022-08-27] MEDS: Spironolactone 100 MG TAB PO SCH (11:15)
[2022-08-27] MEDS: cefTRIAXone\\ROCEPHIN 2 GM in Sodium Chloride 0.9% 100 ML IVPB SCH (14:48)
[2022-08-27 17:36] VITALS: BP 136/76
[2022-08-30 16:56] LABS: EliA Vaculitis New Method **** NEW METHOD ****
== END 2022-08-27 18:45 | disposition home or self-care (01) | DRG 920 ==
LOC: ERS 07:58 → T4-A 11:33 → OBSVTOIN 08-21 15:59
PROVIDERS: ADMIT Family Medicine; ATTEND Internal Medicine
PROC: 30233R1 Transfusion of Nonautologous Platelets into Peripheral Vein, Percutaneous Approach (ICD-10-PCS; principal; 2022-08-21)
PROC: 30233N1 Transfusion of Nonautologous Red Blood Cells into Peripheral Vein, Percutaneous Approach (ICD-10-PCS; 2022-08-21)
DX: T85.631A Leakage of intraperitoneal dialysis catheter, initial encounter (principal); D61.818 Other pancytopenia; D62 Acute posthemorrhagic anemia; D68.9 Coagulation defect, unspecified; N17.9 Acute kidney failure, unspecified; G93.40 Encephalopathy, unspecified; T85.838A Hemorrhage due to other internal prosthetic devices, implants and grafts, initial encounter; Z20.822 Contact with and (suspected) exposure to COVID-19; K70.31 Alcoholic cirrhosis of liver with ascites; M06.9 Rheumatoid arthritis, unspecified; I10 Essential (primary) hypertension; D69.6 Thrombocytopenia, unspecified; R94.31 Abnormal electrocardiogram [ECG] [EKG]; F10.20 Alcohol dependence, uncomplicated; Y84.4 Aspiration of fluid as the cause of abnormal reaction of the patient, or of later complication, without mention of misadventure at the time of the procedure; Z98.51 Tubal ligation status; Z79.899 Other long term (current) drug therapy; E87.6 Hypokalemia; I95.9 Hypotension, unspecified; E83.42 Hypomagnesemia
CPT/HCPCS: 36415; 36430; 49083; 51702; 71046; 74176; 76705; 76770; 80048; 80053; 80143; 80179; 80306; 80307; 81001; 82040; 82140; 82247; 82248; 82570; 82607; 82728; 83516; 83540; 83550; 83690; 83735; 83880; 84100; 84156; 84300; 84484; 84540; 85014; 85018; 85025; 85027; 85610; 85730; 86850; 86900; 86901; 87040; 87070; 87086; 87205; 87811; 93005; 93306; 96361; 96365; 96366; 96372; 96375; 96376; G0378; J0696; J1940; J2354; J3430; J3475; J3490; J7050; P9016; P9035; P9047; Q4081; U0003; U0005

== ENCOUNTER 2022-09-13 14:44 | Emergency (ER) | payer BC | END 2022-09-13 17:33 | disposition home or self-care (01) | LOC: ERS 14:44 | DX: S31.113D Laceration without foreign body of abdominal wall, right lower quadrant without penetration into peritoneal cavity, subsequent encounter (principal); I10 Essential (primary) hypertension ==

== ENCOUNTER 2022-09-20 17:03 | Inpatient (IN) | payer BC ==
[2022-09-20 17:34] LABS: #Basophils 0.1 thou/uL (0.0-0.2); #Eosinphils 0.2 thou/uL (0.0-0.7); #Lymphocytes 1.6 thou/uL (1.20-3.40); #Monocytes 0.8 thou/uL (0.11-0.59); #Neutrophils 5.2 thou/uL (1.40-6.50); %Basophils 0.7 % (0.0-1.0); %Eosinophils 2.3 % (0.0-10.0); %Monocytes 9.9 % (0.0-10.0); %Neutrophils 66.1 % (42.0-75.0); Hemoglobin 9.1 g/dL (12.0-16.0); Mean Corpuscular HGB CONC 32.6 g/dL (32.0-36.0); Mean Platelet Volume 8.4 fL (7.4-10.4); Platelet Count 136 10x3/uL (130-400); RBC Distribution Width 17.5 % (11.5-14.5); Red Blood Cell (RBC) Count 2.77 mill/uL (4.20-5.40); White Blood Cell (WBC) Count 7.8 10x3/uL (4.8-10.8)
[2022-09-20 18:26] LABS: Acetaminophen Less than 10.0 mcg/mL (10.0-30.0); Alcohol Less than 10 mg/dL (Less than 10); Lipase 83 U/L (8-78); Salicylate Less than 8.0 mg/dL (15.0-30.0)
[2022-09-20 18:41] LABS: Bilirubin Negative (Negative); Blood, Urine Negative (Negative); Clarity Clear (Clear); Glucose, Urine (Dipstick) Normal (Negative); Ketone, Urine Negative (Negative); Leukocyte Negative Leu/uL (Negative); Nitrite Negative (Negative); Protein, Urine (Dipstick) Negative (Neg-Trace); Specific Gravity, Urine 1.016 (1.002-1.036)
[2022-09-20 18:59] LABS: Amphetamine Not Detected (NotDetected); Barbiturates Screen Not Detected (NotDetected); Benzodiazepine Screen Not Detected (NotDetected); Cocaine Metabolite Screen Not Detected (NotDetected); Methadone Not Detected (NotDetected); Methamphetamine Not Detected (NotDetected); Opiate Screen Not Detected (NotDetected); Oxycodone Screen Not Detected (NotDetected); Phencyclidine (PCP) Not Detected (NotDetected); THC/Cannabinoid Screen Not Detected (NotDetected); Tricyclic Screen Not Detected (NotDetected)
[2022-09-20 19:06] LABS: ALT (SGPT) 21 U/L (8-55); AST (SGOT) 54 U/L (5-34); Albumin 3.4 g/dL (3.5-5.0); Alkaline Phosphatase 91 U/L (40-110); Anion Gap 16 mmol/L (10-20); BUN (Urea Nitrogen) 55 mg/dL (7.0-18.7); Bilirubin, Total 11.2 mg/dL (0.2-1.2); Calc. Creatinine Clearance 0 mL/min (70-130); Calcium 10.5 mg/dL (7.8-10.44); Carbon Dioxide 22 mmol/L (22-29); Chloride 98 mmol/L (98-107); Estimated GFR 22; Globulin 6.1 g/dL (2.4-3.5); Glucose 102 mg/dL (70-105); Potassium 4.4 mmol/L (3.5-5.1); Protein, Total 9.5 g/dL (6.0-8.3); Sodium 132 mmol/L (136-145)
[2022-09-20] MEDS ORDERED: Ondansetron ODT 4 MG TAB PO PRN (19:52)
[2022-09-20] MEDS ORDERED: Acetaminophen 650 MG Suppository PR PRN (19:52)
[2022-09-20] MEDS ORDERED: Ondansetron PF 4 MG/2 ML Vial IVP PRN (19:52)
[2022-09-20] MEDS ORDERED: Magnesium 2 GM/50 ML BAG (IN WATER) ONE (21:25)
[2022-09-20] MEDS ORDERED: Pantoprazole 40 MG VIAL ONE (21:28)
[2022-09-20 21:43] LABS: Bilirubin, Direct 3.1 mg/dL (0.1-0.3); Bilirubin, Total 10.3 mg/dL (0.2-1.2)
[2022-09-20] MEDS ORDERED: Fentanyl 100 MCG/2 ML VIAL ONE (23:08)
[2022-09-20] MEDS: Fentanyl 100 MCG/2 ML VIAL SLOW IVP PRN (23:13)
[2022-09-21 00:01] LABS: Hemoglobin 8.9 g/dL (12.0-16.0); Mean Corpuscular HGB CONC 33.3 g/dL (32.0-36.0); Red Blood Cell (RBC) Count 2.63 mill/uL (4.20-5.40); White Blood Cell (WBC) Count 7.9 10x3/uL (4.8-10.8)
[2022-09-21 00:15] LABS: #Basophils 0.1 thou/uL (0.0-0.2); #Eosinphils 0.3 thou/uL (0.0-0.7); #Lymphocytes 1.7 thou/uL (1.20-3.40); #Monocytes 0.9 thou/uL (0.11-0.59); #Neutrophils 4.9 thou/uL (1.40-6.50); %Basophils 0.7 % (0.0-1.0); %Eosinophils 3.5 % (0.0-10.0); %Lymphocytes 21.9 % (21.0-51.0); %Monocytes 11.5 % (0.0-10.0); %Neutrophils 62.4 % (42.0-75.0); Mean Platelet Volume 7.8 fL (7.4-10.4); Platelet Count 103 10x3/uL (130-400); Platelet Morphology Comment Appears Decreased
[2022-09-21] MEDS ORDERED: Haloperidol Lactate 5 MG/ML VIAL ONE (00:41)
[2022-09-21] MEDS: Haloperidol Lactate 5 MG/ML VIAL IM SCH ×6 (00:49→22:54)
[2022-09-21] MEDS: Albumin 25% 25 GM/100 ML BOT IVPB SCH ×4 (03:56→18:29)
[2022-09-21] MEDS: Heparin 5,000 UNITS/ML VIAL SC SCH ×2 (09:06→22:53)
[2022-09-21 10:08] LABS: Hemoglobin 8.3 g/dL (12.0-16.0); Mean Corpuscular HGB CONC 32.1 g/dL (32.0-36.0); Mean Corpuscular Hemoglobin 33.3 pg (27.0-31.0); Mean Platelet Volume 8.1 fL (7.4-10.4); Platelet Count 94 10x3/uL (130-400); RBC Distribution Width 17.2 % (11.5-14.5); Red Blood Cell (RBC) Count 2.49 mill/uL (4.20-5.40); White Blood Cell (WBC) Count 7.5 10x3/uL (4.8-10.8)
[2022-09-21 10:22] LABS: Anion Gap 16 mmol/L (10-20); BUN (Urea Nitrogen) 48 mg/dL (7.0-18.7); Calc. Creatinine Clearance 51 mL/min (70-130); Calcium 10.5 mg/dL (7.8-10.44); Carbon Dioxide 22 mmol/L (22-29); Chloride 103 mmol/L (98-107); Estimated GFR 37; Glucose 105 mg/dL (70-105); Potassium 4.1 mmol/L (3.5-5.1); Sodium 137 mmol/L (136-145)
[2022-09-21 10:44] LABS: Band 1 % (5-11); Burr Cells SLIGHT = 2-5 cells (100X) (0-1/hpf); Lymphocytes 18 % (21-51); MDiff Complete? YES; Monocytes 15 % (0-10); Neutrophil 66 % (42-75); Platelet Morphology Comment Appears Decreased; Polychromasia SLIGHT = 2-3 cells (100X) (0-2/hpf)
[2022-09-21] MEDS: Dextrose 5 % And 0.9 % NaCl 1,000 ML IV SCH (13:39)
[2022-09-21] MEDS: Rifaximin 550 MG TAB PO SCH (22:41)
[2022-09-22] MEDS: Dextrose 5 % And 0.9 % NaCl 1,000 ML IV SCH ×2 (03:14→15:43)
[2022-09-22] MEDS: Acetaminophen 325 MG TAB PO PRN (05:58)
[2022-09-22 06:18] LABS: #Eosinphils 0.2 thou/uL (0.0-0.7); #Monocytes 0.7 thou/uL (0.11-0.59); #Neutrophils 3.7 thou/uL (1.40-6.50); %Basophils 0.4 % (0.0-1.0); %Eosinophils 2.9 % (0.0-10.0); %Lymphocytes 17.5 % (21.0-51.0); %Monocytes 12.3 % (0.0-10.0); %Neutrophils 66.8 % (42.0-75.0); Hemoglobin 7.7 g/dL (12.0-16.0); Mean Corpuscular HGB CONC 31.7 g/dL (32.0-36.0); Mean Corpuscular Hemoglobin 32.9 pg (27.0-31.0); Mean Platelet Volume 7.8 fL (7.4-10.4); Platelet Count 104 10x3/uL (130-400); RBC Distribution Width 17.2 % (11.5-14.5); Red Blood Cell (RBC) Count 2.36 mill/uL (4.20-5.40); White Blood Cell (WBC) Count 5.5 10x3/uL (4.8-10.8)
[2022-09-22 06:20] LABS: INR-International Normal Ratio 2.1; Prothrombin Time 24.6 sec (12.0-14.7)
[2022-09-22 06:28] LABS: ALT (SGPT) 20 U/L (8-55); AST (SGOT) 55 U/L (5-34); Albumin 3.6 g/dL (3.5-5.0); Alkaline Phosphatase 74 U/L (40-110); Anion Gap 17 mmol/L (10-20); BUN (Urea Nitrogen) 40 mg/dL (7.0-18.7); Bilirubin, Total 10.3 mg/dL (0.2-1.2); Calc. Creatinine Clearance 60 mL/min (70-130); Calcium 10.3 mg/dL (7.8-10.44); Carbon Dioxide 18 mmol/L (22-29); Chloride 109 mmol/L (98-107); Estimated GFR 44; Globulin 5.2 g/dL (2.4-3.5); Glucose 122 mg/dL (70-105); Potassium 4.1 mmol/L (3.5-5.1); Protein, Total 8.8 g/dL (6.0-8.3); Sodium 140 mmol/L (136-145)
[2022-09-22] MEDS: Rifaximin 550 MG TAB PO SCH ×2 (09:50→20:28)
[2022-09-22] MEDS: Heparin 5,000 UNITS/ML VIAL SC SCH ×2 (10:54→20:28)
[2022-09-22 17:56] LABS: Actual Bicarbonate (HCO3a) 17.9 mEq/L (22-28); Base Excess (BEa) -3.6 mEq/L (-2.0 to +3.0); Carboxyhemoglobin (COHb) 0.9 gm% (0.0-3.0); O2 Tension (PaO2), arterial 107.1 mmHg (80.0-100.0); Potassium - ABG Lab 3.99 mmol/L (3.70-5.30); pH, Arterial 7.53 (7.35-7.45)
[2022-09-22 17:58] LABS: CO2 Tension 21.8 mmHg (35.0-45.0); Puncture Site RRA
[2022-09-22] MEDS: Fentanyl 100 MCG/2 ML VIAL SLOW IVP PRN (20:39)
[2022-09-22] MEDS ORDERED: Fentanyl 100 MCG/2 ML VIAL SLOW IVP PRN (23:23)
[2022-09-23] MEDS: Acetaminophen 325 MG TAB PO PRN (02:26)
[2022-09-23 04:22] LABS: ALT (SGPT) 25 U/L (8-55); AST (SGOT) 61 U/L (5-34); Albumin 3.6 g/dL (3.5-5.0); Alkaline Phosphatase 75 U/L (40-110); Anion Gap 16 mmol/L (10-20); BUN (Urea Nitrogen) 33 mg/dL (7.0-18.7); Bilirubin, Total 10.7 mg/dL (0.2-1.2); Calc. Creatinine Clearance 57 mL/min (70-130); Calcium 10.5 mg/dL (7.8-10.44); Carbon Dioxide 18 mmol/L (22-29); Chloride 116 mmol/L (98-107); Estimated GFR 41; Globulin 5.5 g/dL (2.4-3.5); Glucose 145 mg/dL (70-105); Potassium 3.8 mmol/L (3.5-5.1); Protein, Total 9.1 g/dL (6.0-8.3); Sodium 146 mmol/L (136-145)
[2022-09-23] MEDS: Dextrose 5 % And 0.9 % NaCl 1,000 ML IV SCH (05:00)
[2022-09-23] MEDS: Heparin 5,000 UNITS/ML VIAL SC SCH ×2 (08:21→20:33)
[2022-09-23] MEDS: Rifaximin 550 MG TAB PO SCH ×2 (08:21→20:32)
[2022-09-23 08:45] LABS: #Eosinphils 0.1 thou/uL (0.0-0.7); #Lymphocytes 1.3 thou/uL (1.20-3.40); #Monocytes 1.1 thou/uL (0.11-0.59); #Neutrophils 5.4 thou/uL (1.40-6.50); %Basophils 0.4 % (0.0-1.0); %Eosinophils 1.8 % (0.0-10.0); %Lymphocytes 15.7 % (21.0-51.0); %Monocytes 13.8 % (0.0-10.0); %Neutrophils 68.3 % (42.0-75.0); Hemoglobin 8.4 g/dL (12.0-16.0); Mean Corpuscular HGB CONC 31.5 g/dL (32.0-36.0); Mean Corpuscular Hemoglobin 33.7 pg (27.0-31.0); Mean Platelet Volume 7.7 fL (7.4-10.4); Platelet Count 102 10x3/uL (130-400); RBC Distribution Width 17.8 % (11.5-14.5); Red Blood Cell (RBC) Count 2.48 mill/uL (4.20-5.40)
[2022-09-23] MEDS: D5 1/4 NS 1,000 ML IV SCH (12:28)
[2022-09-23] MEDS ORDERED: Sodium Chloride 0.9% 500 ML IV SCH (13:45)
[2022-09-23] MEDS: Midodrine HCl 5 MG TAB PER TUBE SCH ×2 (15:42→20:32)
[2022-09-23] MEDS: Octreotide Acetate 500 MCG/ML VIAL SC SCH ×2 (15:54→22:29)
[2022-09-24] MEDS: D5 1/4 NS 1,000 ML IV SCH ×2 (01:02→14:01)
[2022-09-24 04:26] LABS: #Basophils 0.1 thou/uL (0.0-0.2); #Eosinphils 0.3 thou/uL (0.0-0.7); #Lymphocytes 1.5 thou/uL (1.20-3.40); #Monocytes 1.2 thou/uL (0.11-0.59); #Neutrophils 9.4 thou/uL (1.40-6.50); %Basophils 0.6 % (0.0-1.0); %Eosinophils 2.6 % (0.0-10.0); %Lymphocytes 12.3 % (21.0-51.0); %Monocytes 9.8 % (0.0-10.0); %Neutrophils 74.8 % (42.0-75.0); Hemoglobin 8.5 g/dL (12.0-16.0); Mean Corpuscular HGB CONC 30.6 g/dL (32.0-36.0); Mean Corpuscular Hemoglobin 33.9 pg (27.0-31.0); Mean Platelet Volume 8.5 fL (7.4-10.4); Platelet Count 105 10x3/uL (130-400); RBC Distribution Width 17.8 % (11.5-14.5); Red Blood Cell (RBC) Count 2.51 mill/uL (4.20-5.40); White Blood Cell (WBC) Count 12.6 10x3/uL (4.8-10.8)
[2022-09-24] MEDS ORDERED: FLU VACC QS2022-23(6MOS UP)/PF 60 MCG/0.5 ML SYRINGE IM ONE (04:30)
[2022-09-24 04:48] LABS: ALT (SGPT) 22 U/L (8-55); AST (SGOT) 62 U/L (5-34); Albumin 3.3 g/dL (3.5-5.0); Alkaline Phosphatase 76 U/L (40-110); Anion Gap 13 mmol/L (10-20); BUN (Urea Nitrogen) 27 mg/dL (7.0-18.7); Bilirubin, Total 9.7 mg/dL (0.2-1.2); Calc. Creatinine Clearance 0 mL/min (70-130); Calcium 9.7 mg/dL (7.8-10.44); Carbon Dioxide 17 mmol/L (22-29); Chloride 117 mmol/L (98-107); Estimated GFR 60; Globulin 5.1 g/dL (2.4-3.5); Glucose 132 mg/dL (70-105); Potassium 3.7 mmol/L (3.5-5.1); Protein, Total 8.4 g/dL (6.0-8.3); Sodium 143 mmol/L (136-145)
[2022-09-24] MEDS: Octreotide Acetate 500 MCG/ML VIAL SC SCH ×3 (05:14→21:04)
[2022-09-24] MEDS: Rifaximin 550 MG TAB PO SCH ×2 (09:19→20:40)
[2022-09-24] MEDS: Midodrine HCl 5 MG TAB PER TUBE SCH ×3 (09:19→20:40)
[2022-09-24] MEDS: Heparin 5,000 UNITS/ML VIAL SC SCH ×2 (09:20→20:39)
[2022-09-24] MEDS: cefTRIAXone\\ROCEPHIN 1 GM in Sodium Chloride 0.9% 100 ML IVPB SCH (14:01)
[2022-09-25] MEDS: D5 1/4 NS 1,000 ML IV SCH ×2 (04:13→17:11)
[2022-09-25 04:41] LABS: ALT (SGPT) 24 U/L (8-55); AST (SGOT) 53 U/L (5-34); Albumin 2.9 g/dL (3.5-5.0); Alkaline Phosphatase 72 U/L (40-110); Anion Gap 12 mmol/L (10-20); BUN (Urea Nitrogen) 25 mg/dL (7.0-18.7); Bilirubin, Total 9.5 mg/dL (0.2-1.2); Calc. Creatinine Clearance 85 mL/min (70-130); Calcium 9.6 mg/dL (7.8-10.44); Carbon Dioxide 20 mmol/L (22-29); Chloride 112 mmol/L (98-107); Estimated GFR 76; Globulin 4.9 g/dL (2.4-3.5); Glucose 121 mg/dL (70-105); Potassium 3.8 mmol/L (3.5-5.1); Protein, Total 7.8 g/dL (6.0-8.3); Sodium 140 mmol/L (136-145)
[2022-09-25] MEDS: Octreotide Acetate 500 MCG/ML VIAL SC SCH (05:10)
[2022-09-25] MEDS: Rifaximin 550 MG TAB PO SCH ×2 (08:23→21:10)
[2022-09-25] MEDS: Heparin 5,000 UNITS/ML VIAL SC SCH ×2 (08:24→21:10)
[2022-09-25] MEDS: Midodrine HCl 5 MG TAB PER TUBE SCH (08:24)
[2022-09-25] MEDS: Pantoprazole 40 MG VIAL IVP SCH (08:24)
[2022-09-25] MEDS: cefTRIAXone\\ROCEPHIN 1 GM in Sodium Chloride 0.9% 100 ML IVPB SCH (13:28)
[2022-09-26] MEDS: D5 1/4 NS 1,000 ML IV SCH ×2 (07:02→18:04)
[2022-09-26] MEDS: Rifaximin 550 MG TAB PO SCH ×2 (09:56→22:33)
[2022-09-26] MEDS: Pantoprazole 40 MG VIAL IVP SCH (09:56)
[2022-09-26 11:18] LABS: #Basophils 0.1 thou/uL (0.0-0.2); #Eosinphils 0.3 thou/uL (0.0-0.7); #Lymphocytes 2.9 thou/uL (1.20-3.40); #Monocytes 1.9 thou/uL (0.11-0.59); #Neutrophils 9.6 thou/uL (1.40-6.50); %Basophils 0.4 % (0.0-1.0); %Eosinophils 1.8 % (0.0-10.0); %Lymphocytes 19.7 % (21.0-51.0); %Neutrophils 65.1 % (42.0-75.0); Hemoglobin 8.7 g/dL (12.0-16.0); Mean Corpuscular HGB CONC 31.6 g/dL (32.0-36.0); Mean Corpuscular Hemoglobin 34.2 pg (27.0-31.0); Mean Platelet Volume 7.8 fL (7.4-10.4); Platelet Count 141 10x3/uL (130-400); RBC Distribution Width 18.2 % (11.5-14.5); Red Blood Cell (RBC) Count 2.54 mill/uL (4.20-5.40); White Blood Cell (WBC) Count 14.7 10x3/uL (4.8-10.8)
[2022-09-26] MEDS ORDERED: Iopamidol-370 76% 500 ML 1 ML ONE (11:26)
[2022-09-26 11:43] LABS: ALT (SGPT) 19 U/L (8-55); AST (SGOT) 40 U/L (5-34); Albumin 2.6 g/dL (3.5-5.0); Alkaline Phosphatase 72 U/L (40-110); Anion Gap 13 mmol/L (10-20); BUN (Urea Nitrogen) 35 mg/dL (7.0-18.7); Bilirubin, Total 10.7 mg/dL (0.2-1.2); Calc. Creatinine Clearance 72 mL/min (70-130); Calcium 9.4 mg/dL (7.8-10.44); Carbon Dioxide 18 mmol/L (22-29); Chloride 105 mmol/L (98-107); Estimated GFR 62; Globulin 4.8 g/dL (2.4-3.5); Glucose 123 mg/dL (70-105); Potassium 4.4 mmol/L (3.5-5.1); Protein, Total 7.4 g/dL (6.0-8.3); Sodium 132 mmol/L (136-145)
[2022-09-26] MEDS: Heparin 5,000 UNITS/ML VIAL SC SCH ×2 (12:35→20:03)
[2022-09-26] MEDS: cefTRIAXone\\ROCEPHIN 1 GM in Sodium Chloride 0.9% 100 ML IVPB SCH (13:24)
[2022-09-26 15:17] LABS: Actual Bicarbonate (HCO3a) 17.8 mEq/L (22-28); Base Excess (BEa) -2.8 mEq/L (-2.0 to +3.0); Calcium, Ionized (arterial) 1.21 mmol/L (1.12-1.30); Carboxyhemoglobin (COHb) 0.9 gm% (0.0-3.0); Hemoglobin (Hb) 9.2 g/dL (12.0-16.0); O2 Tension (PaO2), arterial 62.7 mmHg (80.0-100.0); Potassium - ABG Lab 4.17 mmol/L (3.70-5.30); pH, Arterial 7.58 (7.35-7.45)
[2022-09-26 15:19] LABS: CO2 Tension 19.6 mmHg (35.0-45.0); Puncture Site LRA
[2022-09-26] MEDS ORDERED: Rocuronium Bromide 10 MG/ML (10ML VIAL) ONE (15:35)
[2022-09-26 15:45] VITALS: BMI 28.0
[2022-09-26 16:26] LABS: Actual Bicarbonate (HCO3a) 19.8 mEq/L (22-28); Base Excess (BEa) -4.7 mEq/L (-2.0 to +3.0); CO2 Tension 34.2 mmHg (35.0-45.0); Calcium, Ionized (arterial) 1.25 mmol/L (1.12-1.30); Hemoglobin (Hb) 9.5 g/dL (12.0-16.0); O2 Tension (PaO2), arterial 65.9 mmHg (80.0-100.0); Potassium - ABG Lab 4.08 mmol/L (3.70-5.30); pH, Arterial 7.38 (7.35-7.45)
[2022-09-26 16:28] LABS: Puncture Site LRA
[2022-09-26] MEDS ORDERED: Propofol 1,000 MG/100 ML VIAL IV PRN (17:00)
[2022-09-26] MEDS: Propofol 1,000 MG/100 ML VIAL IV PRN (19:48)
[2022-09-26 23:02] LABS: Actual Bicarbonate (HCO3a) 18.5 mEq/L (22-28); Base Excess (BEa) -4.2 mEq/L (-2.0 to +3.0); CO2 Tension 26.3 mmHg (35.0-45.0); Carboxyhemoglobin (COHb) 0.5 gm% (0.0-3.0); Hemoglobin (Hb) 9.7 g/dL (12.0-16.0); O2 Tension (PaO2), arterial 75.1 mmHg (80.0-100.0); Potassium - ABG Lab 4.31 mmol/L (3.70-5.30); pH, Arterial 7.47 (7.35-7.45)
[2022-09-26 23:03] LABS: Puncture Site RRA
[2022-09-26 23:04] LABS: ALV-art Gradient 212.875 mmHg (0-20)
[2022-09-27] MEDS ORDERED: Lorazepam 2 MG/ML VIAL ONE (00:16)
[2022-09-27] MEDS ORDERED: levETIRAcetam 500 MG/5 ML VIAL SLOW IVP SCH ×4 (00:30→21:00)
[2022-09-27] MEDS ORDERED: Lorazepam 2 MG/ML VIAL SLOW IVP SCH ×2 (00:30→02:30)
[2022-09-27] MEDS ORDERED: NOREPINEPHRINE 8 MG/250 ML-D5W 250 ML IVPB SCH (01:30)
[2022-09-27] MEDS: Lorazepam 2 MG/ML VIAL SLOW IVP PRN ×2 (01:57→02:28)
[2022-09-27] MEDS: Propofol 1,000 MG/100 ML VIAL IV PRN (02:14)
[2022-09-27] MEDS: Acetaminophen 325 MG TAB PO PRN (03:59)
[2022-09-27] MEDS ORDERED: Vasopressin 20 UNIT, Admixture Fee 1 EACH in Sodium Chloride 0.9% 50 ML IV SCH (07:00)
[2022-09-27 07:29] LABS: Base Excess (BEa) -16.3 mEq/L (-2.0 to +3.0); Calcium, Ionized (arterial) 1.19 mmol/L (1.12-1.30); Carboxyhemoglobin (COHb) 0.2 gm% (0.0-3.0); Hemoglobin (Hb) 8.9 g/dL (12.0-16.0); O2 Tension (PaO2), arterial 73.1 mmHg (80.0-100.0); Potassium - ABG Lab 5.48 mmol/L (3.70-5.30); pH, Arterial 7.23 (7.35-7.45)
[2022-09-27 07:34] LABS: CO2 Tension 23.7 mmHg (35.0-45.0)
[2022-09-27 07:35] LABS: ALV-art Gradient 325.075 mmHg (0-20); Actual Bicarbonate (HCO3a) 9.7 mEq/L (22-28); Puncture Site LBA
[2022-09-27] MEDS ORDERED: EPINEPHrine 4 MG in Dextrose 5% in Water 250 ML IV SCH (08:15)
[2022-09-27 08:35] LABS: ALT (SGPT) 32 U/L (8-55); AST (SGOT) 98 U/L (5-34); Albumin 2.2 g/dL (3.5-5.0); Alkaline Phosphatase 57 U/L (40-110); Anion Gap 25 mmol/L (10-20); BUN (Urea Nitrogen) 50 mg/dL (7.0-18.7); Bilirubin, Total 9.3 mg/dL (0.2-1.2); Calc. Creatinine Clearance 26 mL/min (70-130); Calcium 9.3 mg/dL (7.8-10.44); Carbon Dioxide 10 mmol/L (22-29); Chloride 103 mmol/L (98-107); Estimated GFR 17; Globulin 4.4 g/dL (2.4-3.5); Glucose 36 mg/dL (70-105); Magnesium 2.8 mg/dL (1.6-2.6); Potassium 5.7 mmol/L (3.5-5.1); Protein, Total 6.6 g/dL (6.0-8.3); Sodium 132 mmol/L (136-145)
[2022-09-27] MEDS ORDERED: Dextrose 50% Abboject 50 ML SYRINGE ONE (08:37)
[2022-09-27 08:42] LABS: Anisocytosis SLIGHT = 6-15 cells (100X) (0-5/hpf); Band 32 % (5-11); Burr Cells SLIGHT = 2-5 cells (100X) (0-1/hpf); Eosinophils 2 % (0-10); Hypochromia SLIGHT = 6-15 cells (100X) (0-5/hpf); Lymphocytes 16 % (21-51); MDiff Complete? YES; Macrocytosis SLIGHT = 6-15 cells (100X) (0-5/hpf); Mean Corpuscular HGB CONC 31.2 g/dL (32.0-36.0); Mean Corpuscular Hemoglobin 35.4 pg (27.0-31.0); Mean Platelet Volume 7.9 fL (7.4-10.4); Metamyelocyte 5 % (0-0); Monocytes 3 % (0-10); Myelocyte 9 % (0-0); Neutrophil 13 % (42-75); Nucleated RBC 4 % (0); Ovalocytes SLIGHT = 2-5 cells (100X) (0-1/hpf); Platelet Count 102 10x3/uL (130-400); Platelet Morphology Comment Appears Decreased; Polychromasia MODERATE = 3-4 cells (100X) (0-2/hpf); RBC Distribution Width 19.7 % (11.5-14.5); Reactive Lymphocytes 20 % (0-10); Red Blood Cell (RBC) Count 2.25 mill/uL (4.20-5.40); Schistocytes SLIGHT = 2-5 cells (100X) (0-1/hpf); Tear Drops SLIGHT = 2-5 cells (100X) (0-1/hpf); White Blood Cell (WBC) Count 16.1 10x3/uL (4.8-10.8)
[2022-09-27] MEDS ORDERED: Dextrose 50% Abboject 50 ML SYRINGE IVP PRN (09:00)
[2022-09-27] MEDS ORDERED: Dextrose 5% in Water 1,000 ML IV PRN (09:00)
[2022-09-27] MEDS: D5 1/4 NS 1,000 ML IV SCH (09:02)
[2022-09-27] MEDS: Heparin 5,000 UNITS/ML VIAL SC SCH (09:06)
[2022-09-27 09:14] VITALS: TEMP 98.3
[2022-09-27] MEDS ORDERED: Meropenem 1 GM in Sodium Chloride 0.9% 100 ML IVPB SCH (09:15)
[2022-09-27] MEDS: Rifaximin 550 MG TAB PO SCH (10:33)
[2022-09-27 10:35] VITALS: BP 55/24
[2022-09-27] MEDS: Pantoprazole 40 MG VIAL IVP SCH (10:37)
[2022-09-27] MEDS ORDERED: Meropenem 500 MG in Sodium Chloride 0.9% 100 ML IVPB SCH (17:00)
[2022-09-28] MEDS ORDERED: levETIRAcetam in NS 1,500 MG in Premix Bag 1 BAG IVPB SCH
== END 2022-09-27 14:38 | disposition expired | DRG 441 ==
LOC: ERS 17:03 → ERHOLD 19:51 → SJJU 09-21 03:25 → OBSVTOIN 09-21 12:41 → IMCU/EMU 09-22 18:04 → CCU 09-26 15:28
PROVIDERS: ADMIT Student in an Organized Health Care Education/Training Program; ATTEND Internal Medicine
PROC: 0BH18EZ Insertion of Endotracheal Airway into Trachea, Via Natural or Artificial Opening Endoscopic (ICD-10-PCS; principal; 2022-09-26)
PROC: 5A1935Z Respiratory Ventilation, Less than 24 Consecutive Hours (ICD-10-PCS; 2022-09-26)
PROC: 02HV33Z Insertion of Infusion Device into Superior Vena Cava, Percutaneous Approach (ICD-10-PCS; 2022-09-26)
PROC: B548ZZA Ultrasonography of Superior Vena Cava, Guidance (ICD-10-PCS; 2022-09-26)
PROC: 3E043XZ Introduction of Vasopressor into Central Vein, Percutaneous Approach (ICD-10-PCS; 2022-09-26)
PROC: 03HY32Z Insertion of Monitoring Device into Upper Artery, Percutaneous Approach (ICD-10-PCS; 2022-09-27)
DX: K72.00 Acute and subacute hepatic failure without coma (principal); G93.41 Metabolic encephalopathy; K76.7 Hepatorenal syndrome; E87.1 Hypo-osmolality and hyponatremia; N17.9 Acute kidney failure, unspecified; I47.20 Ventricular tachycardia, unspecified; Z66 Do not resuscitate; K76.82 Hepatic encephalopathy; Z20.822 Contact with and (suspected) exposure to COVID-19; M06.9 Rheumatoid arthritis, unspecified; K70.31 Alcoholic cirrhosis of liver with ascites; K72.10 Chronic hepatic failure without coma; D63.1 Anemia in chronic kidney disease; E83.52 Hypercalcemia; K70.11 Alcoholic hepatitis with ascites; R33.9 Retention of urine, unspecified; N18.9 Chronic kidney disease, unspecified; I12.9 Hypertensive chronic kidney disease with stage 1 through stage 4 chronic kidney disease, or unspecified chronic kidney disease; E83.42 Hypomagnesemia; I49.01 Ventricular fibrillation; I46.2 Cardiac arrest due to underlying cardiac condition; Z98.51 Tubal ligation status; Z91.14 Patient's other noncompliance with medication regimen; Z79.899 Other long term (current) drug therapy
CPT/HCPCS: 36415; 36416; 36600; 51701; 51702; 70450; 71045; 74018; 74176; 74177; 80048; 80053; 80306; 80307; 81003; 82140; 82247; 82805; 83690; 83735; 84484; 85025; 85610; 87040; 87086; 93005; 94002; 94003; 94760; C9113; G0378; J0171; J0696; J1630; J1644; J1953; J2060; J2185; J2354; J2704; J3010; J3475; J3490; J7030; J7042; J7070; J7999; P9047; Q9967; U0003; U0005